=== PATIENT | female | born 1995 | race African-American/Black ===

== ENCOUNTER → 2019-09-23 | Outpatient (CLI) | payer BC ==
[~2019-09-23] MED LIST: FLEXERIL 1010 MG/TAB PO; TROKEND100
== END ==
LOC: COL.RAD 10:44
DX: M51.36 Other intervertebral disc degeneration, lumbar region (principal); M51.26 Other intervertebral disc displacement, lumbar region; M48.061 Spinal stenosis, lumbar region without neurogenic claudication

== ENCOUNTER 2021-11-24 22:33 | Emergency (ER) | payer OTHER ==
[~2021-11-24] VITALS: Ht 170.2 cm; Wt 90.9 kg
[2021-11-24 22:45] VITALS: TEMP 101.6
[2021-11-24 23:15] VITALS: BP 132/78; PULSE 76
== END 2021-11-24 23:15 | disposition home or self-care (01) ==
LOC: COL.ER 22:33
DX: U07.1 COVID-19 (principal)

== ENCOUNTER 2023-12-03 16:02 | Emergency (ER) | payer OTHER ==
[~2023-12-03] VITALS: Ht 170.2 cm; Wt 97.3 kg
[2023-12-03 16:12] VITALS: TEMP 98.7
[2023-12-03 16:38] LABS: BASO % 0.2 % (0.0-2.0); EOS % 0.2 % (0.0-4.0); GRAN # 5.2 K/mm3 (1.4-6.5); GRAN % 64.2 % (42.2-75.2); HEMATOCRIT 38.1 % (37.0-47.0); HEMOGLOBIN 12.9 g/dl (12.5-16.0); LYMPH # 2.2 K/mm3 (1.2-3.4); LYMPH % 27.3 % (20.0-51.0); MEAN CELL VOLUME 87 fl (80.0-100.0); MEAN CORPUSCULAR HEMOGLOBIN 29 pg (27-31); MEAN CORPUSCULAR HGB CONC 34 g/dl (33.0-37.0); MEAN PLATELET VOLUME 9.3 fl (7.4-10.4); MONO # 0.6 K/mm3 (0.1-0.6); MONO % 7.7 % (1.7-9.3); PLATELET COUNT 267 K/mm3 (130-400); RED BLOOD COUNT 4.39 M/mm3 (4.10-5.30); REDCELL DISTRIBUTION WIDTH-CV 12.3 % (11.5-14.5)
[2023-12-03 17:25] LABS: COLLECTION METHOD CLEAN CATCH
[2023-12-03 17:30] LABS: ALBUMIN 3.6 gm/dL (3.5-5.0); BILIRUBIN,TOTAL 0.3 mg/dL (0.2-1.2); CALCIUM 9.4 mg/dL (8.4-10.2); CREATININE, serum 0.64 mg/dL (0.57-1.11); POTASSIUM 3.6 mmol/L (3.5-4.5); TOTAL PROTEIN 7.1 gm/dL (6.2-8.1)
[2023-12-03 17:38] LABS: PH 6.5 (5.0-8.5); URINE APPEARANCE Hazy (CLEAR/HAZY); URINE BLOOD Negative (NEGATIVE); URINE COLOR Yellow (YELLOW); URINE GLUCOSE Negative (NEGATIVE); URINE KETONE Negative (NEGATIVE); URINE NITRATE Negative (NEGATIVE); URINE PROTEIN(semi-quant) Negative (NEGATIVE); URINE RBC 0-2 /hpf (0-2); URINE UROBILINOGEN 0.2 E.U/dL (0.2-1.0)
[2023-12-03 18:15] VITALS: BP 122/76; PULSE 82
== END 2023-12-03 18:15 | disposition home or self-care (01) ==
LOC: COL.ER 16:02
PROVIDERS: Physician Assistant
DX: O26.891 Other specified pregnancy related conditions, first trimester (principal); R07.89 Other chest pain; Z87.891 Personal history of nicotine dependence; Z3A.12 12 weeks gestation of pregnancy

== ENCOUNTER 2024-06-15 16:47 | Emergency (ER) | payer SELFPAY ==
[~2024-06-15] VITALS: Ht 170.2 cm; Wt 104.5 kg
[2024-06-15 17:08] LABS: COLLECTION METHOD CLEAN CATCH
[2024-06-15 17:12] LABS: MEAN CELL VOLUME 88 fl (80.0-100.0); MEAN CORPUSCULAR HGB CONC 32 g/dl (33.0-37.0); MEAN PLATELET VOLUME 8.7 fl (7.4-10.4); PLATELET COUNT 240 K/mm3 (130-400); RED BLOOD COUNT 3.26 M/mm3 (4.10-5.30); REDCELL DISTRIBUTION WIDTH-CV 17.1 % (11.5-14.5)
[2024-06-15 17:15] VITALS: O2SAT 99
[2024-06-15 17:19] LABS: HEMATOCRIT 28.6 % (37.0-47.0); HEMOGLOBIN 9.1 g/dl (12.5-16.0); MEAN CORPUSCULAR HEMOGLOBIN 28 pg (27-31)
[2024-06-15 17:29] LABS: PH 5.5 (5.0-8.5); URINE APPEARANCE CLOUDY (CLEAR/HAZY); URINE BLOOD 3+ (NEGATIVE); URINE COLOR YELLOW (YELLOW); URINE GLUCOSE NEGATIVE (NEGATIVE); URINE KETONE NEGATIVE (NEGATIVE); URINE NITRATE NEGATIVE (NEGATIVE); URINE PROTEIN(semi-quant) 1+ (NEGATIVE)
[2024-06-15 17:31] LABS: ALANINE AMINOTRANSFERASE 85 U/L (0-55); ALBUMIN 3.1 g/dL (3.5-5.0); ALKALINE PHOSPHATASE 157 U/L (40-150); ANION GAP 10 mmol/L (7-16); AST,SGOT 42 U/L (5-34); BILIRUBIN,TOTAL 0.4 mg/dL (0.2-1.2); BLOOD UREA NITROGEN 15 mg/dL (7-19); CALCIUM 8.6 mg/dL (8.4-10.2); CHLORIDE 110 mEq/L (98-107); CREATININE, serum 0.85 mg/dL (0.57-1.11); GLUCOSE 97 mg/dL (70-99); SODIUM 140 mEq/L (136-145); TOTAL PROTEIN 6.4 g/dl (6.2-8.1)
[2024-06-15 17:38] LABS: TROPONIN-I < 0.010 ng/mL (0.00-0.033)
[2024-06-15 17:54] LABS: INR 1.4 (0.8-3.0); PROTHROMBIN TIME 15.2 SECONDS (9.7-12.8)
[2024-06-15] MEDS ORDERED: hydrALAZINE 20 MG/ML 1 ML VIAL IV ONE ×2 (18:00→19:00)
[2024-06-15 18:09] LABS: ANISOCYTOSIS 1+; BAND 7 % (0-10); LYMPHOCYTE 43 % (20.0-51.0); METAMYELOCYTE 2 % (0-0); NEUTROPHILS 44 % (42.0-75.2); NUCLEATED RED BLOOD CELL 2 (0-6); PLATELET ESTIMATE NORMAL (NORMAL)
[2024-06-15 18:11] LABS: TSH w REFLEX 1.857 uIU/mL (0.350-4.940)
[2024-06-15] MEDS ORDERED: cefTRIAXone 1 G in Water For Injection,Sterile 10 ML IV ONE (18:30)
[2024-06-15] MEDS ORDERED: Magnesium Sulfate 4% 50 ML IV ONE (18:45)
[2024-06-15] MEDS ORDERED: Magnesium Sulfate 8% 50 ML IV ONE (18:45)
[2024-06-15] MEDS ORDERED: Furosemide 40 MG/4 ML VIAL IV ONE (18:45)
[2024-06-15] MEDS ORDERED: Iohexol 300 - 100 ML VIAL IV ONE (19:46)
[2024-06-15] MEDS ORDERED: NS 50 ML IV ONE (19:47)
[2024-06-15 20:00] VITALS: BP 139/98; PULSE 73; TEMP 98.3
== END 2024-06-15 20:00 | disposition short-term general hospital (02) ==
LOC: COL.ER 16:47
PROVIDERS: Emergency Medicine
DX: O14.95 Unspecified pre-eclampsia, complicating the puerperium (principal); O86.20 Urinary tract infection following delivery, unspecified; N39.0 Urinary tract infection, site not specified; O90.3 Peripartum cardiomyopathy
CPT/HCPCS: J0360; J0696; J1940; J3475; Q9967